=== PATIENT | female | born 1970 | race Caucasian/White ===

== ENCOUNTER 2017-03-14 16:31 | Inpatient (IN) | payer SELFPAY ==
[~2017-03-14] VITALS: Ht 165.1 cm; Wt 81.1 kg
[~2017-03-14 16:31] MED LIST: AUGMENTIN875 MG PO; FLEXERIL10 MG PO; IBUPROFEN600 MG PO; MOTRIN600 MG PO; NOHOMEMEDS; PERCOCET 5/31 TABLET PO; TRAMADOL HCL50 MG PO; ULTRAM50 MG PO
[2017-03-14 17:14] LABS: HEMATOCRIT 35.1 % (36.0-46.0); MCH 25.1 PG (29.0-34.0); MCHC 31.1 G/DL (30.0-36.0); MCV 80.7 FL (83-99); MEAN PLAT.VOLUME 9.3 uM^3 (9.5-12.4); PLATELET COUNT 259 K/uL (156-360); RBC DIS.WIDTH-CV 16.1 % (11.8-14.6); RBC DIS.WIDTH-SD 47.3 % (39-53); RED BLOOD COUNT 4.35 M/uL (3.80-5.20)
[2017-03-14 17:33] LABS: CHLORIDE 107 mEq/L (99-109); POTASSIUM 4.1 mEq/L (3.7-5.4); SODIUM 139 mEq/L (136-147)
[2017-03-14 17:34] LABS: GLUCOSE 97 mg/dL (70-99)
[2017-03-14 17:36] LABS: ANION GAP 7 MEQ/L (2-14)
[2017-03-14 17:38] LABS: GFR ESTIMATE (CALCULATED) > 59 mL/min/
[2017-03-14 17:39] LABS: TROP-I INTERPRETATION NEGATIVE; TROPONIN-I < 0.01 ng/mL (0.0-0.30); UREA NITROGEN (BUN) 9 mg/dL (9-23)
[2017-03-14 19:47] LABS: PROTHROMBIN TIME 10.8 SEC (10.2-12.9)
[2017-03-14 19:50] LABS: PTT 25.6 SEC (25-37)
[2017-03-14] MEDS ORDERED: TYLENOL ARTHRI650 MG PO (20:15)
[2017-03-14 23:10] VITALS: BP 116/73
[2017-03-15 03:39] VITALS: BP 105/56
[2017-03-15 07:02] LABS: MCH 25.2 PG (29.0-34.0); MCHC 31.2 G/DL (30.0-36.0); MCV 80.9 FL (83-99); MEAN PLAT.VOLUME 9.4 uM^3 (9.5-12.4); PLATELET COUNT 242 K/uL (156-360); RBC DIS.WIDTH-SD 47.9 % (39-53); RED BLOOD COUNT 4.08 M/uL (3.80-5.20)
[2017-03-15 07:27] LABS: ALKALINE PHOSPHATASE 69 IU/L (3-129); ANION GAP 7 MEQ/L (2-14); CHLORIDE 108 MEQ/L (99-109); GFR ESTIMATE (CALCULATED) > 59 mL/min/; GLUCOSE 96 mg/dL (70-99); POTASSIUM 4.5 MEQ/L (3.7-5.4); SAMPLE HEMOLYSIS CHECK 0; SAMPLE ICTERIC CHECK 0; SAMPLE LIPEMIA CHECK 0; SODIUM 139 MEQ/L (136-147); TOTAL BILIRUBIN 0.3 MG/DL (0.0-1.0); UREA NITROGEN (BUN) 9 mg/dL (9-23)
[2017-03-15 07:53] VITALS: BP 110/71
[2017-03-15] MEDS ORDERED: XARELTO1 EACH PO (10:38)
[2017-03-15 11:43] VITALS: BP 115/77
== END 2017-03-15 15:36 | disposition home or self-care (01) | DRG 176 ==
LOC: EME 16:31 → EDOF 21:14 → 2EASTP 21:14 → ENRESERV 21:16 → 2EASTP 23:06
PROVIDERS: Internal Medicine
DX: I26.99 Other pulmonary embolism without acute cor pulmonale (principal); I82.4Z1 Acute embolism and thrombosis of unspecified deep veins of right distal lower extremity; F17.200 Nicotine dependence, unspecified, uncomplicated; G89.29 Other chronic pain; M54.9 Dorsalgia, unspecified
CPT/HCPCS: 71020; 71275; 80048; 80053; 84484; 85027; 85379; 85610; 85730; 93005; 93970; 99281; 99285; J1650; J7030

== ENCOUNTER 2017-04-21 18:41 | Emergency (ER) | payer SELFPAY ==
[~2017-04-21] VITALS: Ht 165.1 cm; Wt 82.6 kg
[~2017-04-21 18:41] MED LIST changes: +TYLENOL ARTHRI650 MG PO; +XARELTO1 EACH PO
[2017-04-21 20:29] VITALS: BP 122/80
== END 2017-04-21 20:29 | disposition home or self-care (01) ==
LOC: EME 18:41
DX: S09.90XA Unspecified injury of head, initial encounter (principal); W22.09XA Striking against other stationary object, initial encounter; Z86.711 Personal history of pulmonary embolism; Z86.718 Personal history of other venous thrombosis and embolism; Z79.01 Long term (current) use of anticoagulants; F17.200 Nicotine dependence, unspecified, uncomplicated; Z88.6 Allergy status to analgesic agent
CPT/HCPCS: 70450; 99281; 99284

== ENCOUNTER 2017-05-23 17:52 | Emergency (ER) | payer SELFPAY ==
[~2017-05-23] VITALS: Ht 167.6 cm; Wt 83.5 kg
[2017-05-23 20:36] LABS: HEMATOCRIT 35.2 % (36.0-46.0); MCH 26.7 PG (29.0-34.0); MCHC 32.1 G/DL (30.0-36.0); MEAN PLAT.VOLUME 9.3 uM^3 (9.5-12.4); PLATELET COUNT 319 K/uL (156-360); RBC DIS.WIDTH-CV 15.3 % (11.8-14.6); RBC DIS.WIDTH-SD 46.7 % (39-53); RED BLOOD COUNT 4.24 M/uL (3.80-5.20); WHITE BLOOD COUNT 10.8 K/uL (4.1-10.2)
[2017-05-23 20:44] LABS: CHLORIDE 108 mEq/L (99-109); D-DIMER ELISA < 150.00 ng/mLDDU (<230); POTASSIUM 3.9 mEq/L (3.7-5.4); SODIUM 140 mEq/L (136-147)
[2017-05-23 20:46] LABS: GLUCOSE 90 mg/dL (70-99)
[2017-05-23 20:47] LABS: ANION GAP 10 MEQ/L (2-14)
[2017-05-23 20:48] LABS: TOTAL BILIRUBIN 0.2 mg/dL (0.0-1.0)
[2017-05-23 20:50] LABS: ALKALINE PHOSPHATASE 88 IU/L (3-129); GFR ESTIMATE (CALCULATED) > 59 mL/min/
[2017-05-23 20:51] LABS: UREA NITROGEN (BUN) 9 mg/dL (9-23)
[2017-05-23 20:58] LABS: TROP-I INTERPRETATION NEGATIVE; TROPONIN-I < 0.01 ng/mL (0.0-0.30)
[2017-05-23] MEDS ORDERED: PEN-VEE K,VEET500 MG PO (21:11)
[2017-05-23] MEDS ORDERED: VENTOLIN HFA18 GM IH (21:11)
[2017-05-23] MEDS ORDERED: TESSALON PERLE100 MG PO (22:09)
[2017-05-23 22:41] VITALS: BP 125/68
== END 2017-05-23 22:44 | disposition home or self-care (01) ==
LOC: EME 17:52 → EXP 17:52
PROVIDERS: Nurse Practitioner Family
DX: K04.7 Periapical abscess without sinus (principal); J02.9 Acute pharyngitis, unspecified; R05 Cough; Z86.711 Personal history of pulmonary embolism; Z86.718 Personal history of other venous thrombosis and embolism; F17.200 Nicotine dependence, unspecified, uncomplicated
CPT/HCPCS: 71020; 80053; 84484; 85027; 85379; 87651 90; 93005; 94640